=== PATIENT | female | born 1935 | race Caucasian/White ===

== ENCOUNTER → 2018-08-25 | Day surgery (SDC) | payer MEDICARE ==
[2018-08-16 11:14] LABS: BASOPHILS # (AUTO) 0.1 (0.0-0.1); EOSINOPHILS # (AUTO) 0.2 (0.0-0.4); EOSINOPHILS % 2.6 % (0.0-6.0); HEMATOCRIT 36.9 % (34.2-44.1); LYMPHOCYTES # (AUTO) 0.6 (1.0-3.2); LYMPHOCYTES % 9.3 % (18.0-39.1); MEAN CORPUSCULAR HEMOGLOBIN 23.8 pg (28-32); MEAN CORPUSCULAR HGB CONC 29.8 g/dL (31-35); MEAN CORPUSCULAR VOLUME 79.7 fL (81-99); MONOCYTES # (AUTO) 0.5 (0.2-0.8); MONOCYTES % 7.3 % (4.4-11.3); NEUTROPHILS % 79.5 % (38.7-80.0); PLATELET COUNT 254 x10e3/uL (140-360); RED BLOOD COUNT 4.63 x10e6/uL (3.6-5.1)
[2018-08-16 12:28] LABS: RBC MORPHOLOGY COMMENT ABNORMAL
[2018-08-16 12:29] LABS: ANISOCYTOSIS MODERATE; PLATELET ESTIMATE ADEQUATE; PLATELET MORPHOLOGY COMMENT NORMAL
[~2018-08-25] MED LIST: ASPIR 8181 MG PO; FERROUS SULFAT325 MG PO; LEVOTHYROXINE50 MCG PO; LISINOPRIL10 MG PO; METOPROLOL SUCC25 MG PO; MOVE FREE PO; PANTOPRAZOLE SO40 MG PO; PROPOFOL IV EMULSION 10 MG/ML 50 ML VIAL ONE; SIMVASTATIN40 MG PO; VITAMIN D35000 UNI1 PO; ZYRTEC10 MG PO; [UNRECOGNIZED DRUG - OTHER] PO
--- OUTSIDE RECORDS SUMMARY | 2018-08-25 09:30 | XMS REPORT | Clinical Summary ---
Author Author [facility] [employer] Address Unknown Phone Unavailable Care Team Providers Care Director Embalmer Name Role Phone Stan Vick MD PCP Allergies Comments Active Allergy Reactions Severity Noted Date Aspartame Itching 02/19/2018 Acetaminophen Itching 02/19/2018 Medications End Date Status Medication Sig Dispensed Refills Start Date Active simvastatin (ZOCOR) 40 MG Take 40 mg by 0 tablet mouth nightly. Active levothyroxine (SYNTHROID, Take 75 mcg 0 LEVOXYL) 75 mcg tablet by mouth every morning. Active pantoprazole (PROTONIX) Take 40 mg by 0 40 MG EC tablet mouth daily. Active aspirin (ECOTRIN) 81 MG Take 81 mg by 0 enteric coated tablet mouth daily. Active cetirizine (ZyrTEC) 10 MG Take 10 mg by 0 tablet mouth nightly. Active glucosamine/chondr brantley A Take by mouth 0 sod (OSTEO BI-FLEX ORAL) 2 (two) times a day. Active pyridoxine, vitamin B6, Take 100 mg 0 (B-6) 100 MG tablet by mouth daily. Active apixaban (ELIQUIS) 2.5 mg Take 2.5 mg 0 tablet by mouth 2 (two) times a day. Active lisinopril Take 20 mg by 0 (PRINIVIL,ZESTRIL) 10 mg mouth daily. tablet Active traMADol (ULTRAM) 50 mg Take 50 mg by 0 tablet mouth 2 (two) times a day. 04/04/2018 Discontinued naproxen (NAPROSYN) 500 Take 500 mg 0 MG tablet by mouth 2 (two) times a day with meals. As needed 02/23/2018 Discontinued metoprolol tartrate Take 50 mg by 0 (LOPRESSOR) 50 mg tablet mouth 2 (two) times a day. 04/04/2018 Discontinued alendronate (FOSAMAX) 10 Take 40 mg by 0 MG tablet mouth once. Take in the morning with a full glass of water on an empty stomach, do NOT take anything else by mouth or lie down for the next 30 min. Alendronate 40mg once a week 2018 sotalol (BETAPACE) 80 MG Take 0.5 30 tablet 0 tablet tablets (40 8 mg total) by mouth 2 (two) times a day for 30 days. 02/23/2018 Discontinued apixaban (ELIQUIS) 2.5 mg Take 1 tablet 30 tablet 0 tablet (2.5 mg 8 total) by mouth daily for 30 days. 2018 apixaban (ELIQUIS) 2.5 mg Take 1 tablet 60 tablet 0 tablet (2.5 mg 8 total) by mouth 2 (two) times a day for 30 days. 07/09/2018 Discontinued sotalol (BETAPACE) 80 MG Take 40 mg by 0 tablet mouth 2 (two) times a day. 04/13/2018 levoFLOXacin (LEVAQUIN) Take 1 tablet 10 tablet 0 500 MG tablet (500 mg 8 total) by mouth daily for 10 days. 08/08/2018 metoprolol tartrate Take 1 tablet 60 tablet 0 (LOPRESSOR) 25 mg tablet (25 mg total) 9 by mouth 2 (two) times a day for 30 days. Active Problems Problem Noted Date Symptomatic anemia 07/06/2018 Pneumonia due to infectious organism 04/03/2018 Atrial fibrillation with RVR 02/19/2018 Encounters Care Team Description Date Type Specialty Genaro Chester MD 07/08/2018 Anesthesia Gastroenterology Event Kobi Moreno MD ESOPHAGOGASTRODUODENOSCOPY (EGD) with bx 07/08/2018 Surgery Gastroenterology Maggie Hall MD Allencherril, Paul Joseph, MD Symptomatic anemia (Primary Dx); Atrial fibrillation, unspecified type (HCC) 07/06/2018 [facility] General Internal Medicine - Encounter 07/09/2018 Juliano Molina MD Allencherril, Paul Joseph, MD Pneumonia due to infectious organism, unspecified laterality, unspecified part of lung (Primary Dx); SOB (shortness of breath); Pneumonia of right upper lobe due to infectious organism (HCC) 04/03/2018 Emergency General Surgery - 04/04/2018 Emerita Vanegas RN 02/23/2018 Patient Quality Outreach Chandu Porter MD Atrial fibrillation with RVR (Primary Dx) 02/19/2018 [facility] General Internal Medicine - Encounter 02/23/2018 after 08/24/2017 Immunizations Name Dates Previously Given Next Due FLUCELVAX QUAD PF (0.5mL 02/22/2018 syringe) Pneumococcal Conjugate 04/04/2018 (Deferred: - pt stated she received 13-Valent 2016) Social History Date Tobacco Use Types Packs/Day Years Used Never Smoker Smokeless Tobacco: Never Used Alcohol Use Drinks/Week oz/Week Comments No Sex Assigned at Date Recorded Not on file Industry Job Start Date Occupation Not on file Not on file Not on file Travel End Travel History Travel Start No recent travel history available. Last Filed Vital Signs Time Taken Vital Sign Reading 07/09/2018 7:29 AM [employer] Blood Pressure 115/56 07/09/2018 8:30 AM [employer] Pulse 62 07/09/2018 7:29 AM [employer] Temperature 37 C (98.6 F) 07/09/2018 7:29 AM [employer] Respiratory Rate 15 07/09/2018 7:29 AM [employer] Oxygen Saturation 96% - Inhaled Oxygen - Concentration 07/09/2018 5:00 AM [employer] Weight 60.2 kg (132 lb 12.8 oz) 07/06/2018 2:44 AM [employer] Height 152.4 cm (5') 07/09/2018 5:00 AM [employer] Body Mass Index 25.94 Plan of Treatment Health Maintenance Due Date Last Done Comments SHINGLES VACCINES (#1) 1984 65+ PNEUMOCOCCAL VACCINE 1999 (1 of 2 - PCV13) PNEUMOCOCCAL 1999 POLYSACCHARIDE VACCINE AGE 65 AND OVER INFLUENZA VACCINE Completed 02/22/2018 Procedures Comments Procedure Name Priority Date/Time Associated Diagnosis SURGICAL PATHOLOGY Routine 07/08/2018 REQUEST 3:29 PM [employer] HC COMPLETE BLD COUNT STAT 07/08/2018 W/AUTO DIFF 1:24 PM [employer] ESOPHAGOGASTRODUODENOSCOP 07/08/2018 Symptomatic anemia Y (EGD) 11:50 AM [employer] HC COMPLETE BLD COUNT Routine 07/07/2018 W/AUTO DIFF 4:27 AM [employer] D-DIMER Routine 07/06/2018 9:25 PM [employer] TROPONIN Routine 07/06/2018 9:25 PM [employer] ECG 12-LEAD STAT 07/06/2018 5:40 PM [employer] TROPONIN Timed 07/06/2018 6:50 AM [employer] PREPARE RBC STAT 07/06/2018 4:41 AM [employer] TYPE AND SCREEN STAT 07/06/2018 4:41 AM [employer] XR CHEST 2 VW STAT 07/06/2018 4:30 AM [employer] ECG ED PRELIMINARY Routine 07/06/2018 INTERPRETATION 2:57 AM [employer] ECG 12-LEAD STAT 07/06/2018 2:49 AM [employer] SMEAR REVIEW STAT 07/06/2018 2:25 AM [employer] ESTIMATED GFR STAT 07/06/2018 2:25 AM [employer] B NATRIURETIC PEPTIDE STAT 07/06/2018 2:25 AM [employer] TROPONIN STAT 07/06/2018 2:25 AM [employer] COMPREHENSIVE METABOLIC STAT 07/06/2018 PANEL 2:25 AM [employer] HC COMPLETE BLD COUNT STAT 07/06/2018 W/AUTO DIFF 2:25 AM [employer] ESTIMATED GFR Routine 04/04/2018 7:07 AM CDT MAGNESIUM LEVEL Routine 04/04/2018 7:07 AM CDT BASIC METABOLIC PANEL Routine 04/04/2018 7:07 AM CDT ECG 12-LEAD STAT 04/03/2018 4:55 PM CDT MAGNESIUM LEVEL Routine 04/03/2018 9:19 AM CDT TROPONIN Timed 04/03/2018 9:19 AM CDT TROPONIN Timed 04/03/2018 7:00 AM CDT TROPONIN Timed 04/03/2018 4:[address] ANGIOGRAM PE CHEST STAT 04/03/2018 2:35 AM CDT XR CHEST 1 VW PORTABLE STAT 04/03/2018 1:00 AM CDT ESTIMATED GFR STAT 04/03/2018 12:25 AM CDT PROTHROMBIN TIME WITH INR STAT 04/03/2018 12:25 AM CDT PARTIAL THROMBOPLASTIN STAT 04/03/2018 TIME (PTT) 12:25 AM CDT B NATRIURETIC PEPTIDE STAT 04/03/2018 12:25 AM CDT TROPONIN STAT 04/03/2018 12:25 AM CDT COMPREHENSIVE METABOLIC STAT 04/03/2018 PANEL 12:25 AM CDT HC COMPLETE BLD COUNT STAT 04/03/2018 W/AUTO DIFF 12:25 AM CDT ECG ED PRELIMINARY Routine 04/03/2018 INTERPRETATION 12:12 AM CDT ECG 12-LEAD STAT 04/03/2018 12:11 AM CDT ECG 12-LEAD STAT 02/23/2018 12:53 PM CDT MRI BRAIN WO CONTRAST Routine 02/21/2018 11:01 PM CDT ECG 12-LEAD Routine 02/21/2018 8:52 PM CDT MAGNESIUM LEVEL Routine 02/21/2018 9:58 AM CDT ESTIMATED GFR Routine 02/21/2018 9:58 AM CDT BASIC METABOLIC PANEL Routine 02/21/2018 9:58 AM CDT HC COMPLETE BLD COUNT Routine 02/21/2018 W/AUTO DIFF 9:58 AM CDT ECG 12-LEAD Routine 02/21/2018 9:01 AM CDT ECG 12-LEAD Routine 02/20/2018 8:[address] ANGIOGRAM HEAD W WO STAT 02/20/2018 CONTRAST 5:[address] ANGIOGRAM NECK W WO STAT 02/20/2018 CONTRAST 5:[address] STROKE BRAIN WO STAT 02/20/2018 CONTRAST 4:49 PM CDT POC GLUCOSE Routine 02/20/2018 4:34 PM CDT ECG 12-LEAD Routine 02/20/2018 11:48 AM CDT ESTIMATED GFR Routine 02/20/2018 3:57 AM CDT THYROID STIMULATING Routine 02/20/2018 HORMONE 3:57 AM CDT T3, FREE Routine 02/20/2018 3:57 AM CDT PROTHROMBIN TIME WITH INR Routine 02/20/2018 3:57 AM CDT PARTIAL THROMBOPLASTIN Routine 02/20/2018 TIME (PTT) 3:57 AM CDT MAGNESIUM LEVEL Routine 02/20/2018 3:57 AM CDT LIPID PANEL Routine 02/20/2018 3:57 AM CDT HEMOGLOBIN A1C Routine 02/20/2018 3:57 AM CDT COMPREHENSIVE METABOLIC Routine 02/20/2018 PANEL 3:57 AM CDT HC COMPLETE BLD COUNT Routine 02/20/2018 W/AUTO DIFF 3:57 AM CDT B NATRIURETIC PEPTIDE Routine 02/20/2018 3:57 AM CDT ECG 12-LEAD Routine 02/19/2018 10:52 PM CDT ECG 12-LEAD STAT 02/19/2018 2:46 PM CDT TROPONIN Timed 02/19/2018 1:51 PM CDT ECHOCARDIOGRAM 2D Routine 02/19/2018 COMPLETE W MMODE SPECTRAL 1:48 PM CDT COLOR DOPPLER (19363) ECG 12-LEAD STAT 02/19/2018 10:29 AM CDT XR CHEST 1 VW PORTABLE Routine 02/19/2018 6:54 AM CDT TROPONIN Timed 02/19/2018 4:21 AM CDT PHOSPHORUS LEVEL Timed 02/19/2018 1:37 AM CDT MAGNESIUM LEVEL Timed 02/19/2018 1:37 AM CDT TROPONIN Timed 02/19/2018 1:37 AM CDT ESTIMATED GFR Timed 02/19/2018 1:37 AM CDT COMPREHENSIVE METABOLIC Timed 02/19/2018 PANEL 1:37 AM CDT HC COMPLETE BLD COUNT Timed 02/19/2018 W/AUTO DIFF 1:37 AM CDT ECG 12-LEAD Routine 02/19/2018 1:03 AM CDT after 08/24/2017 Results * Surgical pathology request (07/08/2018 3:29 PM [employer]) [facility] MEDICINE Surgical pathology report See link below for PDF Lab [facility] Report PATHOLOGY AND GENOMIC MEDICINE Result status This is Final Report for [facility] [id number] PATHOLOGY AND GENOMIC MEDICINE Performing Organization Address City/State/Zipcode Phone Number [facility] [address] [place] [address] PATHOLOGY AND GENOMIC MEDICINE * CBC with platelet and differential (07/08/2018 1:24 PM [employer]) Only the most recent of 7 results within the time period is included. WBC 7.4 4.2 - 11.0 k/uL [facility] RBC 4.54 4.04 - 5.86 m/uL [facility] HGB 9.8 (L) 11.5 - 15.3 g/dL [facility] HCT 33.8 (L) 34.0 - 45.0 % [facility] MCV 74.4 (L) 80.0 - 98.0 fL [facility] MCH 21.6 (L) 27.0 - 34.0 pg [facility] MCHC 29.0 (L) 31.5 - 36.5 g/dL [facility] RDW - SD 56.3 (H) 37.0 - 51.0 fL [facility] MPV 9.3 7.4 - 10.4 fL [facility] Platelet count 319 150 - 400 k/uL [facility] Nucleated RBC 0.00 /100 WBC [facility] Neutrophils 78.0 (H) 36.0 - 66.0 % [facility] Lymphocytes 10.5 (L) 24.0 - 44.0 % [facility] Monocytes 7.9 (H) 0.0 - 6.0 % [facility] Eosinophils 2.4 0.0 - 6.0 % [facility] Basophils 0.8 0.0 - 1.2 % [facility] Immature granulocytes 0.4 0.0 - 1.0 % [facility] Specimen Blood Performing Organization Address City/State/Zipcode Phone Number [place] [phone] [place] [address] PATHOLOGY AND GENOMIC MEDICINE [facility] [address] [place], [place] [phone] [place] [address] * Troponin (07/06/2018 9:25 PM [employer]) Only the most recent of 10 results within the time period is included. Troponin <0.30 0.00 - 0.30 ng/mL DE[facility] HOROWITZ Comment: [facility] 0.11 - 1.49 ng/mlMay indicate increased risk of acute coronary syndrome. >=1.5 ng/ml Consistent with acute myocardial infarction. The diagnostic value of a single normal or non-diagnostic result is questionable.Serial samples at 2-6 hour intervals are required to rule out acute myocardial injury. Specimen Plasma specimen Performing Organization Address [facility] [place] [address] PATHOLOGY AND GENOMIC MEDICINE [address] * D-dimer (07/06/2018 9:25 PM [employer]) D-dimer 0.50 (H) 0.00 - 0.40 ug/mL [facility] Comment: [facility] Units are ug/ml Fibrinogen Equivalent Unit. When combined with low clinical probability, D-dimer results of less than 0.5 ug/ml FEU have a good negativepredictive value in excluding PE or DVT. For D-dimer results greater than 0.5ug/ml FEU further testing is indicated if PE or DVT is suspectedclinically. Elevated D-dimer results have been reported in DVT, PE, and DIC cases and may indicate the presence of a clot. D-dimer results may be elevated due to old age, , inflammatory diseases, trauma, post-operative states, sepsis, and malignancies. Specimen Blood Performing Organization Address [facility] Phone Number [place] [phone] PATHOLOGY AND GENOMIC MEDICINE [address] * ECG 12 lead (07/06/2018 5:40 PM [employer]) Only the most recent of 13 results within the time period is included. Ventricular rate 102 [facility] Atrial rate 102 [facility] WI interval 140 [facility] QRSD interval 74 [facility] QT interval 368 [facility] QTC interval 479 [facility] P axis 1 23 [facility] QRS axis 1 38 [facility] T wave axis 51 [facility] EKG impression Sinus tachycardia-Otherwise [facility] normal ECG-In automated comparison with ECG of 06-JUL-2018 02:49,-Sinus rhythm has replaced Atrial fibrillation- Narrative Performed At Performing Organization Address City/State/Zipcode Phone Number [facility] [address] [place] [address] * Transfuse RBC (07/06/2018 12:26 PM [employer]) * Prepare RBC, 2 Units (07/06/2018 4:41 AM [employer]) Product name Red Blood Cells -1, Leukored [facility] Unit number [id number] [facility] Product code [id number] [facility] Dispense status Transfused [facility] Blood expiration date [facility] Blood type code 6200 [facility] Blood type A POSITIVE [facility] Product name Red Blood Cells -1, Leukored [facility] Unit number [id number] [facility] Product code [id number] [facility] Dispense status Transfused [facility] Blood expiration date [id number]: 16:48 [facility] Blood type code 6200 [facility] Blood type A POSITIVE [facility] Performing Organization Address City/[facility] Phone Number [facility] [place] [address] [place] [address] PATHOLOGY AND GENOMIC MEDICINE [place] [address] [place], [place] [phone] [place] [address] * Type and screen (07/06/2018 4:41 AM [employer]) ABO grouping A [facility] Rh type POS [facility] Antibody screen (gel) NEG [facility] Specimen Blood Performing Organization Address City/[facility]/Zipcode Phone Number [place] [address] [place] [address] PATHOLOGY AND GENOMIC MEDICINE [place] [id number] [place] [address] [facility] * XR Chest 2 Vw (07/06/2018 4:30 AM [employer]) Narrative Performed At XR CHEST 2 VW [facility] INDICATION:short of breath COMPARISON:04/03/2018. IMPRESSION: The lungs are clear of focal consolidation. The cardiomediastinal silhouette demonstrates a normal contour. There is no pleural effusion or gross pneumothorax. There are no acute osseous abnormalities. [facility]-[id number] Procedure Note Hm Interface, Radiology Results Incoming - 07/06/2018 4:38 AM [employer] XR CHEST 2 VW CLINICAL INDICATION: short of breath COMPARISON: 04/03/2018. IMPRESSION: The lungs are clear of focal consolidation. The cardiomediastinal silhouette demonstrates a normal contour. There is no pleural effusion or gross pneumothorax. There are no acute osseous abnormalities. [facility]-[id number] Performing Organization Address City/[facility]/[place] Phone Number [facility] [address] [place] [address] * ECG ED Preliminary Interpretation - Not an Order (07/06/2018 2:57 AM [employer]) Only the most recent of 2 results within the time period is included. Narrative Performed At Maggie Hall MD 07/08/2018 10:41 PM ECG ED Preliminary Interpretation - Not an Order Performed by: Maggie Hall MD Authorized by: Maggie Hall MD ECG reviewed by ED Physician in the absence of a branch rental manager: yes Interpretation: Interpretation: abnormal Rate: ECG rate:103 bpm Rhythm: Rhythm: atrial fibrillation Ectopy: Ectopy: none QRS: QRS axis:Normal QRS intervals:Normal Conduction: Conduction: abnormal ST segments: ST segments:Normal T waves: T waves: normal Comments: Rapid ventricular response (RVR) * Smear review (07/06/2018 2:25 AM [employer]) Platelet slide review Jeff adequate [facility] Anisocytosis Moderate [facility] Polychromasia Moderate [facility] Target cells 1+ [facility] Ovalocytes 1+ [facility] Elliptocytes Occasional [facility] Performing Organization Address City/[facility]/[place] Phone Number [facility] [place] [phone] PATHOLOGY AND GENOMIC MEDICINE [address] * Estimated GFR (07/06/2018 2:25 AM [employer]) Only the most recent of 6 results within the time period is included. Estimated GFR 79 mL/min/1.[address] [facility] Comment: [facility] CatergoryUnitsInte rpretation G1 >=90 Normal or high G2 60-89Mildly decreased [id number] Mildly to moderately decreased C2e21-60 Moderately to severely decreased G4 15-29Severely decreased G5 <15Kidney failure The eGFR was calculated using the Chronic Kidney Disease Epidemiology Collaboration (CKD-EPI) equation. Interpretation is based on recommendations of the National Kidney Foundation-Kidney Disease Outcomes Quality Initiative (NKF-KDOQI) published in 2014. Specimen Plasma specimen Performing Organization Address City/[facility]/[place] [address] PATHOLOGY AND [facility] MEDICINE [address] * B natriuretic peptide (07/06/2018 2:25 AM [employer]) Only the most recent of 3 results within the time period is included. BNP 246 (H) 0 - 100 pg/mL [facility] Specimen Blood Performing Organization Address City/[facility]/[place] [address] PATHOLOGY AND GENOMIC MEDICINE [address] * Comprehensive metabolic panel (07/06/2018 2:25 AM [employer]) Only the most recent of 4 results within the time period is included. Sodium 138 135 - 150 mEq/L [facility] Potassium 3.6 3.5 - 5.0 mEq/L [facility] Chloride 102 98 - 112 mEq/L [facility] CO2 24 24 - 31 mmol/L [facility] Anion gap 12@ANIO 7 - 15 mEq/L [facility] BUN 10 7 - 18 mg/dL [facility] Creatinine 0.70 0.50 - 0.90 mg/dL [facility] Glucose 124 (H) 65 - 100 mg/dL [facility] Calcium 8.7 (L) 8.8 - 10.2 mg/dL [facility] Protein 6.4 6.3 - 8.3 g/dL [facility] Albumin 3.3 (L) 3.5 - 5.0 g/dL [facility] A/G ratio 1.1 0.7 - 3.8 [facility] Alkaline phosphatase 42 0 - 104 U/L [facility] AST 19 10 - 35 U/L [facility] ALT 9 5 - 50 U/L [facility] Total bilirubin 0.3 0.2 - 1.2 mg/dL [facility] Specimen Plasma specimen Performing Organization Address City/[facility] [place] [address] PATHOLOGY [address] * Magnesium level (04/04/2018 7:07 AM CDT) Only the most recent of 5 results within the time period is included. Magnesium 2.10 1.60 - 2.40 mg/dL [facility] GENOMIC MEDICINE Specimen Plasma specimen Performing Organization Address City/[facility]/[place] [address] PATHOLOGY AND [facility] MEDICINE * Basic metabolic panel (04/04/2018 7:07 AM CDT) Only the most recent of 2 results within the time period is included. Sodium 142 135 - 150 mEq/L [facility]Y AND GENOMIC MEDICINE Potassium 3.6 3.5 - 5.0 mEq/L [facility]OLOGY AND GENOMIC MEDICINE Chloride 104 98 - 112 mEq/L [facility]OLOGY AND GENOMIC MEDICINE CO2 24 24 - 31 mmol/L [facility] PATHOLOGY AND GENOMIC MEDICINE Anion gap 14@ANIO 7 - 15 mEq/L [facility]OLOGY AND GENOMIC MEDICINE BUN 8 7 - 18 mg/dL [facility] PATHOLOGY AND GENOMIC MEDICINE Creatinine 0.70 0.50 - 0.90 mg/dL [facility]OLOGY AND GENOMIC MEDICINE Glucose 101 (H) 65 - 100 mg/dL [facility]OLOGY AND GENOMIC MEDICINE Calcium 9.0 8.8 - 10.2 mg/dL [facility] AND GENOMIC MEDICINE Specimen Plasma specimen Performing Organization Address City/State/Zipcode Phone Number [facility] [address] [place] [address] PATHOLOGY AND GENOMIC MEDICINE * CT Angiogram Pe Chest (04/03/2018 2:35 AM CDT) Narrative Performed At EXAMINATION: [facility] CT ANGIOGRAM PE CHEST CLINICAL HISTORY: SOB eval PE TECHNIQUE: CT angiographic images of the chest were obtained during intravenous administration of iodinated contrast. Computerized reformatted images and 3-D MIP images were also obtained and archived (CT pulmonary embolus protocol). CT imaging was performed with iterative reconstruction technique and/or automated exposure control to reduce radiation dose. COMPARISON: None. IMPRESSION: Subsegmental atelectasis is seen of the lung bases. Focal groundglass infiltration is seen in the right upper lobe in a region measuring 1.6 x 1.3 cm. This is suspicious for infectious or inflammatory pneumonitis, and a 4-6 week follow-up CT chest is advised to assess for resolution, given the nodular appearance. No effusions or pneumothorax. The airway is patent. Heart size is upper limits of normal. Coronary artery calcifications and aortic valve calcifications are seen. Some pericardial calcifications are identified. No mediastinal or hilar lymphadenopathy. Some calcified left hilar lymph nodes and mediastinal lymph nodes are seen. No main branch, saddle region, or proximal segmental filling defects are seen to suggest pulmonary artery embolus. No aortic aneurysm, dissection, or pseudoaneurysm. Atherosclerotic vascular calcifications are seen. Somewhat nodular contour of the liver is seen, suggestive of chronic liver disease/cirrhosis. Nonobstructive calculi are seen of the collecting system of the kidneys bilaterally. Large hiatal hernia. A few diverticula are seen of the large bowel. Age-indeterminate fracture of right L2 pedicle is seen. This is at the edge of the film series, and may be chronic. Clinical correlation is advised. If indicated, further evaluation with CT lumbar spine could be performed. Old right-sided rib fractures. Mild degenerative change of thoracolumbar spine. CONCLUSION: No pulmonary embolus. Some groundglass infiltration of the right upper lobe is seen in a focal region measuring 1.6 x 1.3 cm, suspicious for infectious or inflammatory pneumonitis. A 4-[address] chest is advised to assess for resolution. Nonobstructive calculi are seen of the collecting system of the kidneys bilaterally. Age-indeterminate fracture of right L2 pedicle is seen. This is at the edge of the film series, and may be chronic. Clinical correlation is advised. If indicated, further evaluation with CT lumbar spine could be performed. [id number] Procedure Note Interface, Radiology Results Incoming - 04/03/2018 2:53 AM CDT EXAMINATION: CT ANGIOGRAM PE CHEST CLINICAL HISTORY: SOB eval PE TECHNIQUE: CT angiographic images of the chest were obtained during intravenous administration of iodinated contrast. Computerized reformatted images and 3-D MIP images were also obtained and archived (CT pulmonary embolus protocol). CT imaging was performed with iterative reconstruction technique and/or automated exposure control to reduce radiation dose. COMPARISON: None. IMPRESSION: Subsegmental atelectasis is seen of the lung bases. Focal groundglass infiltration is seen in the right upper lobe in a region measuring 1.6 x 1.3 cm. This is suspicious for infectious or inflammatory pneumonitis, and a 4-6 week follow-up CT chest is advised to assess for resolution, given the nodular appearance. No effusions or pneumothorax. The airway is patent. Heart size is upper limits of normal. Coronary artery calcifications and aortic valve calcifications are seen. Some pericardial calcifications are identified. No mediastinal or hilar lymphadenopathy. Some calcified left hilar lymph nodes and mediastinal lymph nodes are seen. No main branch, saddle region, or proximal segmental filling defects are seen to suggest pulmonary artery embolus. No aortic aneurysm, dissection, or pseudoaneurysm. Atherosclerotic vascular calcifications are seen. Somewhat nodular contour of the liver is seen, suggestive of chronic liver disease/cirrhosis. Nonobstructive calculi are seen of the collecting system of the kidneys bilaterally. Large hiatal hernia. A few diverticula are seen of the large bowel. Age-indeterminate fracture of right L2 pedicle is seen. This is at the edge of the film series, and may be chronic. Clinical correlation is advised. If indicated, further evaluation with CT lumbar spine could be performed. Old right-sided rib fractures. Mild degenerative change of thoracolumbar spine. CONCLUSION: No pulmonary embolus. Some groundglass infiltration of the right upper lobe is seen in a focal region measuring 1.6 x 1.3 cm, suspicious for infectious or inflammatory pneumonitis. A 4-[address] chest is advised to assess for resolution. Nonobstructive calculi are seen of the collecting system of the kidneys bilaterally. Age-indeterminate fracture of right L2 pedicle is seen. This is at the edge of the film series, and may be chronic. Clinical correlation is advised. If indicated, further evaluation with CT lumbar spine could be performed. [id number] Performing Organization Address [facility] Phone Number [email or web address] [phone] [place] [address] * XR Chest 1 Vw Portable (04/03/2018 1:00 AM CDT) Only the most recent of 2 results within the time period is included. Narrative Performed At EXAMINATION: XR CHEST 1 VW PORTABLE [facility] CLINICAL HISTORY: SOB COMPARISON:02/19/2018. IMPRESSION: Subcentimeter calcified granuloma the left midlung. The lungs are otherwise clear. No pleural effusion or pneumothorax. The cardiomediastinal silhouette is normal. Thoracic aorta atherosclerotic calcifications. No acute osseous abnormalities. [id number] Procedure Note Hm Interface, Radiology Results Incoming - 04/03/2018 1:13 AM CDT EXAMINATION: XR CHEST 1 VW PORTABLE CLINICAL HISTORY: SOB COMPARISON: 02/19/2018. IMPRESSION: Subcentimeter calcified granuloma the left midlung. The lungs are otherwise clear. No pleural effusion or pneumothorax. The cardiomediastinal silhouette is normal. Thoracic aorta atherosclerotic calcifications. No acute osseous abnormalities. [facility]-[id number] Performing Organization Address [facility] Phone Number [email or web address] [phone] [place] [address] * Partial thromboplastin time, activated (04/03/2018 12:25 AM CDT) Only the most recent of 2 results within the time period is included. PTT 38.6 (H) 23.0 - 36.0 sec [facility] Comment: PATHOLOGY AND PTT therapeutic range for Stylistpick unfractionated heparin is 61.0-112.0 seconds which corresponds to Anti-Xa 0.3-0.7 U/ml. Note:Change in Panic Value The PTT Panic Value is changing from 110 sec. to 100 sec. due to new instrumentation and reagents. Correlation studies have been performed to validate this result. Specimen Blood Performing Organization Address City/State/Zipcode Phone Number [facility] [address] [place] [address] PATHOLOGY AND [facility] * Prothrombin time with INR (04/03/2018 12:25 AM CDT) Only the most recent of 2 results within the time period is included. Prothrombin time 14.3 12.0 - 15.0 sec [facility]OLOGY AND GENOMIC MEDICINE INR 1.10 0.92 - 1.12 [facility] Comment: PATHOLOGY AND For patients on anticoagulant GENOMIC MEDICINE therapy, reference ranges below: Indication: INR Value Treatment of Venous Thrombosis, 2.0-3.0 pulmonary emboli, or prophylaxis of a venous thrombosis, or systemic emboli. High dose, high risk patients 3.0-4.5 with mechanical valves. NOTE:INR values over 3.0 are sometimes associated with gastrointestinal hemorrhage, especially values over 4.0. Specimen Blood Performing Organization Address City/State/Zipcode Phone Number [place] [phone] [place] [address] PATHOLOGY AND [facility] * MRI Brain Wo Contrast (02/21/2018 11:01 PM CDT) Narrative Performed At [facility] EXAMINATION: MRI BRAIN WO CONTRAST CLINICAL HISTORY: Altered level of consciousness (LOC)unexplained, back to baseline at this time COMPARISON:CT brain from yesterday. TECHNIQUE: Multiplanar and multisequence MRI imaging of the brain was obtained without contrast. FINDINGS: The study was completed after hours at 2255 hours. There is a tiny recent infarct in the paracentral right parietal lobe cortex and in the left inferior frontal lobe cortex. These are in different vessel distribution suggesting the etiology is from emboli from a central source such as the heart or aorta. There is mild nonspecific enlargement of the ventricles and extra axial space. There are nonspecific white matter changes. 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 There is pseudophakia. 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 Recommend correlation for the etiology of emboli from a central source such as the heart or aorta. [id number] Procedure Note Interface, Radiology Results Incoming - 02/21/2018 11:09 PM CDT EXAMINATION: MRI BRAIN WO CONTRAST CLINICAL HISTORY: Altered level of consciousness (LOC) unexplained, back to baseline at this time COMPARISON: CT brain from yesterday. TECHNIQUE: Multiplanar and multisequence MRI imaging of the brain was obtained without contrast. FINDINGS: The study was completed after hours at 2255 hours. There is a tiny recent infarct in the paracentral right parietal lobe cortex and in the left inferior frontal lobe cortex. These are in different vessel distribution suggesting the etiology is from emboli from a central source such as the heart or aorta. There is mild nonspecific enlargement of the ventricles and extra axial space. There are nonspecific white matter changes. 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 There is pseudophakia. 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 Recommend correlation for the etiology of emboli from a central source such as the heart or aorta. [id number] Performing Organization Address City/State/[place] Phone Number [facility] [address] [place] [address] * CTA Head W Wo Contrast (02/20/2018 5:20 PM CDT) Narrative Performed At EXAMINATION: CT ANGIOGRAM HEAD W WO CONTRAST [facility] CLINICAL HISTORY: . Stroke. Evaluate for artery stenosis. COMPARISON:CT brain from earlier today. TECHNIQUE:Imaging of the intracranial circulation was obtained from the skull base to the vertex during the arterial phase of enhancement. Postprocessing was performed with MIP multiplanar and 3D reconstructed images.CT scans are performed using radiation dose reduction techniques. Technical factors are evaluated and adjusted to ensure appropriate moderation of exposure. Automated dose management technology is applied to adjust radiation exposure while achieving a diagnostic quality image. FINDINGS: There is no evidence of acute large vessel occlusion at the level of the [place]. There is flow in the anterior and both posterior communicating arteries. There is mild stenosis in the left proximal P2 segment. The distal vertebral and the distal internal carotid arteries do not show significant focal stenosis. There is moderate focal stenosis in the midportion of the basilar artery. The study was not performed for proper imaging of the brain or dural venous sinuses. There is good contrast enhancement in the dural venous sinuses however. 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 [id number] Procedure Note Hm Interface, Radiology Results Incoming - 02/20/2018 5:28 PM CDT EXAMINATION: CT ANGIOGRAM HEAD W WO CONTRAST CLINICAL HISTORY: . Stroke. Evaluate for artery stenosis. COMPARISON: CT brain from earlier today. TECHNIQUE: Imaging of the intracranial circulation was obtained from the skull base to the vertex during the arterial phase of enhancement. Postprocessing was performed with MIP multiplanar and 3D reconstructed images. CT scans are performed using radiation dose reduction techniques. Technical factors are evaluated and adjusted to ensure appropriate moderation of exposure. Automated dose management technology is applied to adjust radiation exposure while achieving a diagnostic quality image. FINDINGS: There is no evidence of acute large vessel occlusion at the level of the [place]. There is flow in the anterior and both posterior communicating arteries. There is mild stenosis in the left proximal P2 segment. The distal vertebral and the distal internal carotid arteries do not show significant focal stenosis. There is moderate focal stenosis in the midportion of the basilar artery. The study was not performed for proper imaging of the brain or dural venous sinuses. There is good contrast enhancement in the dural venous sinuses however. 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 [id number] Performing Organization Address City/State/Zipcode Phone Number [facility] [address] [place] [address] * CTA Neck W Wo Contrast (02/20/2018 5:16 PM CDT) Narrative Performed At EXAMINATION: CT ANGIOGRAM NECK W WO CONTRAST [facility] CLINICAL HISTORY: code stroke. Evaluate for artery stenosis. COMPARISON:None TECHNIQUE: Imaging of the cervical circulation was obtained from the upper thorax to the skull base during the arterial phase of enhancement. Postprocessing was performed with MIP multiplanar and 3D reconstructed images.CT scans are performed using radiation dose reduction techniques. Technical factors are evaluated and adjusted to ensure appropriate moderation of exposure. Automated dose management technology is applied to adjust radiation exposure while achieving a diagnostic quality image. FINDINGS: There is no hemodynamically significant narrowing of the cervical internal carotid arteries by NASCET criteria. There is mild calcified plaque in the [place] of the aortic arch. The vertebral arteries do not show significant focal stenosis. The common carotid arteries do not show stenosis. The study was not performed for proper imaging of soft tissue structures in the neck or chest. No definite incidental thyroid gland mass of significance is seen and the thyroid gland is tiny. There is partial visualization of a right greater than left pleural effusion. There is a nonspecific patchy area of increased density in the right upper posterior lung. The can be better evaluated with a chest CT. The study was not performed for proper imaging of the spine. There is 4 mm anterolisthesis at C3-4 and 3.3 mm anterolisthesis at C4-5 and C7-T1. There is severe disc space narrowing at C4-5, C5-6 and C6-7 and posterior C2-C3, C3-4 and C7-T1. There is dorsal spondylosis narrowing the anterior canal at C3-4, C4-5, C5-6 and C6-7. The mass effect on the structures in the canal can be further evaluated with other imaging if indicated. There are facet and uncovertebral joint hypertrophic changes with severe C3-4, C4-5, C5-6 and C6-7 foramen stenosis with less foramen stenosis at other levels. There are degenerative changes in the thoracic spine without significant canal stenosis. IMPRESSION: No hemodynamically significant narrowing of the cervical vessels by NASCET criteria. 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 Partial rotation of bilateral pleural effusions and abnormal density in the right lung can be better evaluated with a chest CT if indicated. [id number] Procedure Note Hm Interface, Radiology Results Incoming - 02/20/2018 5:34 PM CDT EXAMINATION: CT ANGIOGRAM NECK W WO CONTRAST CLINICAL HISTORY: code stroke. Evaluate for artery stenosis. COMPARISON: None TECHNIQUE: Imaging of the cervical circulation was obtained from the upper thorax to the skull base during the arterial phase of enhancement. Postprocessing was performed with MIP multiplanar and 3D reconstructed images. CT scans are performed using radiation dose reduction techniques. Technical factors are evaluated and adjusted to ensure appropriate moderation of exposure. Automated dose management technology is applied to adjust radiation exposure while achieving a diagnostic quality image. FINDINGS: There is no hemodynamically significant narrowing of the cervical internal carotid arteries by NASCET criteria. There is mild calcified plaque in the [place] of the aortic arch. The vertebral arteries do not show significant focal stenosis. The common carotid arteries do not show stenosis. The study was not performed for proper imaging of soft tissue structures in the neck or chest. No definite incidental thyroid gland mass of significance is seen and the thyroid gland is tiny. There is partial visualization of a right greater than left pleural effusion. There is a nonspecific patchy area of increased density in the right upper posterior lung. The can be better evaluated with a chest CT. The study was not performed for proper imaging of the spine. There is 4 mm anterolisthesis at C3-4 and 3.3 mm anterolisthesis at C4-5 and C7-T1. There is severe disc space narrowing at C4-5, C5-6 and C6-7 and posterior C2-C3, C3-4 and C7-T1. There is dorsal spondylosis narrowing the anterior canal at C3-4, C4-5, C5-6 and C6-7. The mass effect on the structures in the canal can be further evaluated with other imaging if indicated. There are facet and uncovertebral joint hypertrophic changes with severe C3-4, C4-5, C5-6 and C6-7 foramen stenosis with less foramen stenosis at other levels. There are degenerative changes in the thoracic spine without significant canal stenosis. IMPRESSION: No hemodynamically significant narrowing of the cervical vessels by NASCET criteria. 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 Partial rotation of bilateral pleural effusions and abnormal density in the right lung can be better evaluated with a chest CT if indicated. [facility]-[id number] Performing Organization Address City/State/Zipcode Phone Number [facility] [address] [place] [address] * CT Stroke Brain Wo Contrast (02/20/2018 4:49 PM CDT) Narrative Performed At EXAMINATION: CT STROKE BRAIN WO CONTRAST [facility] CLINICAL HISTORY: code cva COMPARISON:None TECHNIQUE: Noncontrast enhanced images of the brain were obtained from the skull base to the vertex. Both soft tissue and bone reconstruction algorithms were performed.CT scans are performed using radiation dose reduction techniques. Technical factors are evaluated and adjusted to ensure appropriate moderation of exposure. Automated dose management technology is applied to adjust radiation exposure while achieving a diagnostic quality image. FINDINGS: Artifacts obscure some details. There is no definite evidence of acute intracranial hemorrhage or mass, hydrocephalus or midline shift, stroke or thrombus in the vessels. There is nonspecific enlargement of the ventricles and extra axial space greater in the anterior region. There are mild chronic changes. There is calcification in the [place] of some of the arteries. There is pseudophakia. The sinuses and mastoid air cells do not show abnormality. IMPRESSION: No acute intracranial abnormality identified. Findings were discussed with Liv in the SICU at 02/20/2018 4:49 PM who verbalized understanding. [id number] Procedure Note Hm Interface, Radiology Results Incoming - 02/20/2018 5:00 PM CDT EXAMINATION: CT STROKE BRAIN WO CONTRAST CLINICAL HISTORY: code cva COMPARISON: None TECHNIQUE: Noncontrast enhanced images of the brain were obtained from the skull base to the vertex. Both soft tissue and bone reconstruction algorithms were performed. CT scans are performed using radiation dose reduction techniques. Technical factors are evaluated and adjusted to ensure appropriate moderation of exposure. Automated dose management technology is applied to adjust radiation exposure while achieving a diagnostic quality image. FINDINGS: Artifacts obscure some details. There is no definite evidence of acute intracranial hemorrhage or mass, hydrocephalus or midline shift, stroke or thrombus in the vessels. There is nonspecific enlargement of the ventricles and extra axial space greater in the anterior region. There are mild chronic changes. There is calcification in the [place] of some of the arteries. There is pseudophakia. The sinuses and mastoid air cells do not show abnormality. IMPRESSION: No acute intracranial abnormality identified. Findings were discussed with Liv in the SICU at 02/20/2018 4:49 PM who verbalized understanding. [facility]-[id number] Performing Organization Address City/[facility]/Zipcode Phone Number [facility] [address] [place] [address] * POC glucose (02/20/2018 4:34 PM CDT) POC glucose 174 (H) 65 - 100 mg/dL [facility] Comment: PATHOLOGY AND Meter ID: [id number] GENOMIC MEDICINE Health Program Director: Adelaide Spangler Performing Organization Address City/[facility]/[place] [address] PATHOLOGY AND GENOMIC MEDICINE * T3, free (02/20/2018 3:57 AM CDT) T3, free 1.13 (L) 2.18 - 3.98 pmol/L [facility] MEDICINE Specimen Plasma specimen Performing Organization Address [facility]/[place] [address] PATHOLOGY AND GENOMIC MEDICINE * Thyroid stimulating hormone (02/20/2018 3:57 AM CDT) TSH 0.63 0.27 - 4.20 uIU/mL [facility]Y AND [facility] Specimen Plasma specimen Performing Organization Address City/[facility]/[place] [address] PATHOLOGY AND [facility] * Hemoglobin A1c (02/20/2018 3:57 AM CDT) Hemoglobin A1C 5.3 4.0 - 6.0 % [facility] Comment: PATHOLOGY AND GENOMIC MEDICINE Less than 6% - Goal of therapy for Type II Diabetes Less than 7%-Goal of therapy for Type I Diabetes Less than 8%-Accepta ble control for Type I or Type II Diabetes Greater than 8%-Unacceptabl e control; action indicated. ([id number]) Specimen Blood Performing Organization Address [facility]/[place] [address] PATHOLOGY AND [facility] * Lipid panel (02/20/2018 3:57 AM CDT) Cholesterol 147 0 - 199 mg/dL [facility] AND [facility]OMIC MEDICINE Triglycerides 78 0 - 149 mg/dL [facility] AND [facility]OMIC MEDICINE HDL cholesterol 66 40 - 9,999 mg/dL [facility] AND [facility]OMIC MEDICINE LDL cholesterol 81Comment: Result obtained by 0 - 99 mg/dL [facility] direct LDL measurement PATHOLOGY AND [facility] Lipid panel See below [facility] interpretation Comment: PATHOLOGY AND Total Cholesterol GENOMIC MEDICINE (mg/dL) LDL Cholesterol (mg/dL) <200 Desirable <100 Optimal 200-239Borderline -[id number] 29Near or above optimal >=240High 130-159Borderline- high 160-189High >=190Very high HDL Cholesterol (mg/dL) Triglycerides (mg/dL) <40Low <150 Normal >=60 High 150-199Borderline- high 200-499High >=500Very high Risk Catergories that modify LDL goals. Risk Catergories LDL goal (mg/dL) CHD and CHD risk equivalent <100 (10-year risk >20%) Multiple (2+) risk factors <130 (10-year risk=<20%) 0-1 risk factors <160 (<10-year risk) Defining levels of lipids in metabolic syndrome Triglycerides >=150 mg/dL HDL Cholesterol Men <40 mg/dL Women <50 mg/dL Non-HDL cholesterol is a second target for therapy in persons with high triglycerides (>=200 mg/dL) Specimen Plasma specimen Performing Organization Address City/State/Zipcode Phone Number [place] [address] [place] [address] PATHOLOGY AND GENOMIC MEDICINE * Echocardiogram complete w contrast and 3D if needed (02/19/2018 1:48 PM CDT) Velocity Ratio (V1/V2) 0.58 m/s [facility] IVS,d 0.85 cm [facility] EF 47.49 % [facility] Ascending aorta 2.30 cm [facility] LVPWD,d 0.89 cm [facility] AoV Mean PG 11.99 mmHg [facility] AV LVOT peak gradient 6.22 mmHg [facility] MV valve area p 1/2 3.58 cm2 [facility] method E/A ratio 1.97 [facility] E wave decelartion time 211.65 msec [facility] LVOT Diam,S 2.00 cm [facility] LVOT area 3.14 cm2 [facility] LVOT Vmax 1.37 m/s [facility] LVOT VTI 0.26 m [facility] AoV Peak PG 17.76 mmHg [facility] MV Peak E Sy 1.22 m/s [facility] MV stenosis pressure 1/2 61.38 ms [facility] time MV Peak A Sy 0.62 m/s [facility] Ao Root Diameter 2.76 cm [facility] AoV Area, Vmax 1.86 cm2 [facility] AoV Area, VTI 1.86 cm2 [facility] AoV Vmax 2.38 m/s [facility] IVS/LVPW,2D 0.95 [facility] Left Atrium Dimension 3.63 cm [facility] Anterior LV,d 3.96 cm [facility] LV,s 3.03 cm [facility] TR Vpeak 2.42 mm/s [facility] MV E A ratio 1.97 mmHg [facility] TR pk grad 23.43 mmHg [facility] Ao Root Diameter 2.76 cm [facility] LV SYS VOL 35.93 ml [facility] LV HOLT VOL 68.42 ml [facility] LA Vol MOD A4C 36.69 ml [facility] LV SV Teich 2D 32.49 ml [facility] LV Vol s Teich PSAX 35.93 ml [facility] LVOT CO 5.09 l/min [facility] LVOT HR for LVOT CO 71.74 bpm [facility] AoV Vmn 1.67 [facility] IVS s 2D 1.16 [facility] LV FS Cube 2D 23.46 [facility] LV FS Teich 2D 23.46 [facility] AoV VTI 0.44 m [facility] LV EF,2D 55.16 % [facility] MV AE ratio 0.51 [facility] LVOT Vmn 0.89 [facility] Aov area Vmn 1.76 cm2 [facility] LVOT mean grad 3.62 mmHg [facility] MAX Pred HR 136.09 [facility] 85 of MPHR 115.68 [facility] Calc MPHR 136.09 bpm [facility] IVS pct thck PLAX 35.76 % [facility] LV SV Cube 2D 34.30 ml [facility] LV vol d cube 2D 62.18 ml [facility] LV vol s cube 2D 27.89 ml [facility] LVPW pct thck PLAX 35.80 % [facility] LVPW s PLAX 1.21 cm [facility] MV Decel slope 5.76 m/s2 [facility] Pred Exer Dur R1 5.32 [facility] Pred METS R1 3.79 [facility] Narrative Performed At [facility] There is mild left ventricular concentric hypertrophy. Left Ventricular ejection fraction is 50 - 55%. Spectral Doppler shows impaired relaxation pattern of left ventricular diastolic filling. Left atrium size is mildly dilated. There is moderate sclerosis of the aortic valve leaflets. There is mild mitral valve regurgitation. Performing Organization Address City/State/Zipcode Phone Number [facility] [id number] [place] [address] * Phosphorus level (02/19/2018 1:37 AM CDT) Phosphorus 2.3 (L) 2.4 - 4.5 mg/dL [facility] Specimen Plasma specimen Performing Organization Address City/[facility]/Zipcode Phone Number [facility] [place] [facility] [address] [place] [id number]. [place] [address] PATHOLOGY AND GENOMIC MEDICINE after 08/24/2017 Insurance Payer Benefit Subscriber ID Type Phone Address Plan / Group [employer] xxxxxxxxx HMO [employer] NG O MCR ADV Advance Directives Patient has advance care planning documents, and code status on file. For more i nformation, please contact: Deion Horowitz [address] [place] [address] Date Inactivated Comments Code Status Date Activated 04/04/2018 7:00 PM Full Code 04/03/2018 4:45 AM Code Status decision reached by: Patient
[2018-08-25 12:30] VITALS: BP 167/80
== END | disposition home or self-care (01) ==
LOC: OR 09:27
PROVIDERS: ATTEND Internal Medicine
DX: D50.9 Iron deficiency anemia, unspecified (principal); K57.30 Diverticulosis of large intestine without perforation or abscess without bleeding; K64.1 Second degree hemorrhoids; K21.9 Gastro-esophageal reflux disease without esophagitis; I10 Essential (primary) hypertension; I20.9 Angina pectoris, unspecified; Z86.73 Personal history of transient ischemic attack (TIA), and cerebral infarction without residual deficits; E03.9 Hypothyroidism, unspecified; Z88.6 Allergy status to analgesic agent; Z91.048 Other nonmedicinal substance allergy status; Z01.810 Encounter for preprocedural cardiovascular examination; Z01.812 Encounter for preprocedural laboratory examination; Z79.02 Long term (current) use of antithrombotics/antiplatelets; Z79.82 Long term (current) use of aspirin
CPT/HCPCS: 36415; 45378; 85025; 93005; J2704